=== PATIENT | female | born 1960 | race Caucasian/White ===

== ENCOUNTER → 2016-08-10 | Outpatient (CLI) | payer BC ==
[~2016-08-10] MED LIST: ALL60 PO; ASCA500 PO; ATV5 PO; COENZYME Q PO; DRV100 PO; GFNSR600 PO; MXLUNK PO; RANI75TA7 PO
--- NOTE | 2016-08-11 08:03 | MAMMOGRAPHY REPORT ---
BILATERAL DIGITAL SCREENING MAMMOGRAM TOMOSYNTHESIS WITH CAD: 08/10/2016 CLINICAL HISTORY: Routine screening. Patient has no complaints. TECHNIQUE: Breast tomosynthesis in addition to standard 2D mammography was performed. Current study was also evaluated with a Computer Aided Detection (CAD) system. COMPARISON: Comparison is made to exams dated: 08/08/2015 mammogram, 08/06/2014 mammogram, 08/04/2013 ma mmogram, 07/10/2010 ultrasound, 07/29/2011 mammogram, and 08/03/2012 mammogram - [facility] enter. BREAST COMPOSITION: The tissue of both breasts is heterogeneously dense, which may obscure small ma sses. FINDINGS: The parenchymal pattern is unchanged. No developing mass, architectural distortion or clu ster of suspicious microcalcifications is seen in either breast. IMPRESSION: ACR BI-RADS CATEGORY 2: BENIGN There is no mammographic evidence of malignancy. A 1 year screening mammogram is recommended. The p atient will receive written notification of the results. Approximately 10% of breast cancers are not detected with mammography. A negative mammographic repor t should not delay biopsy if a clinically suggestive mass is present. Carmelita Hunt M.D. ay/:08/10/2016 22:57:47 Sole Buffer: Kathleen MEDRANO(R)(Adri)(BD), [facility] letter sent: Normal 1/2 BI-RADS Code: ACR BI-RADS Category 2: Benign
== END | disposition home or self-care (01) ==
LOC: C.MAMM 15:26
PROVIDERS: ATTEND Family Medicine
DX: Z12.31 Encounter for screening mammogram for malignant neoplasm of breast (principal)

== ENCOUNTER → 2017-07-02 | Outpatient (CLI) | payer BC ==
[2017-07-02 12:50] LABS: BASO % 0.6 %; BASO ABS # 0.03 K/uL (0-0.2); EOS % 2.7 %; EOS ABS # 0.13 K/uL (0-0.5); HEMATOCRIT 40.1 % (37-47); HEMOGLOBIN 13.4 g/dL (12.0-16.0); LYMPH % 36.9 %; MEAN CELL VOLUME 90.3 fL (80-100); MEAN CORPUSCULAR HEMOGLOBIN 30.2 pg (25-34); MEAN CORPUSCULAR HGB CONC 33.4 g/dl (32-36); MEAN PLATELET VOLUME 10.3 fL (7.4-10.4); MONO ABS # 0.34 K/uL (0.11-0.59); NEUT % 52.8 %; NEUT ABS # 2.58 K/uL (1.4-6.5); PLATELET COUNT 348 K/uL (130-400); RED CELL DISTRIBUTION WIDTH CV 13.3 % (11.5-14.5); RED CELL DISTRIBUTION WIDTH SD 44.1 fL (36.4-46.3); WHITE BLOOD COUNT 4.88 K/uL (4.8-10.8)
[2017-07-02 13:30] LABS: ALBUMIN 3.9 gm/dl (3.4-5.0); ALKALINE PHOSPHATASE 67 U/L (45-117); ALT/SGPT 27 U/L (12-78); AST/SGOT 16 U/L (15-37); BLOOD UREA NITROGEN 16 mg/dl (7-18); CALCIUM 9.3 mg/dl (8.5-10.1); CARBON DIOXIDE 28 mmol/L (21-32); CHOLESTEROL 240 mg/dl (0-200); CREATININE 0.84 mg/dl (0.60-1.20); GLUCOSE 95 mg/dl (70-99); LDL CHOLESTEROL CALCULATED 130 mg/dl; POTASSIUM 4.4 mmol/L (3.5-5.1); SODIUM 137 mmol/L (136-145)
[2017-07-02 13:40] LABS: TOTAL PROTEIN 7.2 gm/dl (6.4-8.2)
== END | disposition home or self-care (01) ==
LOC: C.LABPVFM 08:45
PROVIDERS: ATTEND Family Medicine
DX: Z13.220 Encounter for screening for lipoid disorders (principal)

== ENCOUNTER → 2017-08-11 | Outpatient (CLI) | payer BC ==
--- NOTE | 2017-08-12 08:04 | MAMMOGRAPHY REPORT ---
BILATERAL DIGITAL SCREENING MAMMOGRAM TOMOSYNTHESIS WITH CAD: 08/11/2017 CLINICAL HISTORY: Routine screening. Patient has no complaints. TECHNIQUE: Breast tomosynthesis in addition to standard 2D mammography was performed. Current study was also evaluated with a Computer Aided Detection (CAD) system. COMPARISON: Comparison is made to exams dated: 08/10/2016 mammogram, 08/08/2015 mammogram, 08/06/2014 mamm ogram, 08/04/2013 mammogram, 08/03/2012 mammogram, and 07/29/2011 mammogram - [facility] er. BREAST COMPOSITION: The tissue of both breasts is heterogeneously dense, which may obscure small mas ses. FINDINGS: The parenchymal pattern is unchanged. No developing mass, architectural distortion or clus ter of suspicious microcalcifications is seen in either breast. IMPRESSION: ACR BI-RADS CATEGORY 2: BENIGN There is no mammographic evidence of malignancy. A 1 year screening mammogram is recommended. The pa tient will receive written notification of the results. Approximately 10% of breast cancers are not detected with mammography. A negative mammographic report should not delay biopsy if a clinically suggestive mass is present. Carmelita Hunt M.D. ay/:08/11/2017 17:16:12 Area Coordinator: Donna MEDRANO(Maria)(Adri), [facility] letter sent: Normal 1/2 BI-RADS Code: ACR BI-RADS Category 2: Benign
== END | disposition home or self-care (01) ==
LOC: C.MAMM 16:30
PROVIDERS: ATTEND Family Medicine
DX: Z12.31 Encounter for screening mammogram for malignant neoplasm of breast (principal)